=== PATIENT | male | born 1975 | race Hispanic/Latino ===

== ENCOUNTER 2023-12-21 09:21 | Outpatient (CLI) | payer OTHER | END 2023-12-21 09:22 | disposition home or self-care (01) | LOC: SCSMRI 09:21 | PROVIDERS: ATTEND Preventive Medicine Undersea and Hyperbaric Medicine | DX: L89.324 Pressure ulcer of left buttock, stage 4 (principal); M86.8X8 Other osteomyelitis, other site | CPT/HCPCS: 72197 ==

== ENCOUNTER 2023-12-24 17:56 | Inpatient (IN) | payer OTHER ==
[2023-12-24 19:10] VITALS: BMI 34.6
[2023-12-24] MEDS ORDERED: Ondansetron PF 4 MG/2 ML Vial IVP PRN (20:18)
[2023-12-24] MEDS ORDERED: Ondansetron ODT 4 MG TAB PO PRN (20:18)
[2023-12-24] MEDS: Ketorolac Tromethamine 30 MG (1 mL) VIAL IVP PRN (22:39)
[2023-12-25] MEDS: Cefepime 1 GM in Sodium Chloride 0.9% 100 ML IVPB SCH (00:33)
[2023-12-25] MEDS: metroNIDAZOLE 500 MG in Premix 1 BAG IVPB SCH (00:34)
[2023-12-25] MEDS: Vancomycin (BATCH) 1.25 GM in Premix 1 BAG IVPB SCH ×2 (05:34→18:44)
[2023-12-25 06:03] LABS: #Basophils 0.05 10x3/uL (0.0-0.2); %Basophils 0.6 % (0.0-1.0); %Eosinophils 2.8 % (0.0-10.0); %Lymphocytes 18.5 % (21.0-51.0); %Monocytes 8.9 % (0.0-10.0); %Neutrophils 68.8 % (42.0-75.0); Hematocrit 35.4 % (42.0-52.0); Hemoglobin 11.3 g/dL (14.0-18.0); Mean Corpuscular HGB CONC 31.9 g/dL (32.0-36.0); Mean Corpuscular Hemoglobin 28.3 pg (27.0-31.0); Mean Corpuscular Volume 88.5 fL (78.0-98.0); Mean Platelet Volume 8.9 fL (7.4-10.4); Platelet Count 272 10x3/uL (130-400); RBC Distribution Width 15.4 % (11.5-14.5)
[2023-12-25 06:28] LABS: Anion Gap 8 mmol/L (10-20); BUN (Urea Nitrogen) 17 mg/dL (8.9-20.6); Calc. Creatinine Clearance 119 mL/min (70-130); Calcium 8.7 mg/dL (7.8-10.44); Carbon Dioxide 24 mmol/L (22-29); Chloride 106 mmol/L (98-107); Estimated GFR 84; Glucose 101 mg/dL (70-105); Potassium 3.9 mmol/L (3.5-5.1); Sodium 134 mmol/L (136-145)
[2023-12-25 08:42] VITALS: BMI 34.6
[2023-12-26] MEDS: Cefepime 2 GM in Sodium Chloride 0.9% 100 ML IVPB SCH (00:26)
[2023-12-26 04:56] LABS: #Basophils 0.03 10x3/uL (0.0-0.2); %Basophils 0.5 % (0.0-1.0); %Eosinophils 4.6 % (0.0-10.0); %Lymphocytes 21.5 % (21.0-51.0); %Monocytes 11.5 % (0.0-10.0); %Neutrophils 61.7 % (42.0-75.0); Hematocrit 33.8 % (42.0-52.0); Hemoglobin 10.6 g/dL (14.0-18.0); Mean Corpuscular HGB CONC 31.4 g/dL (32.0-36.0); Mean Corpuscular Hemoglobin 28.1 pg (27.0-31.0); Mean Corpuscular Volume 89.7 fL (78.0-98.0); Mean Platelet Volume 9.4 fL (7.4-10.4); Platelet Count 287 10x3/uL (130-400); RBC Distribution Width 15.3 % (11.5-14.5); Red Blood Cell (RBC) Count 3.77 mill/uL (4.70-6.10)
[2023-12-26 05:33] LABS: Vancomycin, Random 16.7 ug/mL (See Comment)
[2023-12-26 05:38] LABS: Anion Gap 9 mmol/L (10-20); BUN (Urea Nitrogen) 13 mg/dL (8.9-20.6); Calc. Creatinine Clearance 130 mL/min (70-130); Calcium 8.6 mg/dL (7.8-10.44); Carbon Dioxide 25 mmol/L (22-29); Chloride 108 mmol/L (98-107); Estimated GFR 93; Glucose 106 mg/dL (70-105); Sodium 138 mmol/L (136-145)
[2023-12-26] MEDS: Vancomycin (BATCH) 1.25 GM in Premix 1 BAG IVPB SCH (09:56)
[2023-12-26] MEDS: Morphine 2 MG/ML VIAL SLOW IVP PRN (13:16)
[2023-12-26] MEDS: Vancomycin (BATCH) 1.75 GM in Premix 1 BAG IVPB SCH (20:43)
[2023-12-27 07:14] LABS: #Basophils 0.06 10x3/uL (0.0-0.2); %Eosinophils 5.9 % (0.0-10.0); %Lymphocytes 21.1 % (21.0-51.0); %Monocytes 8.7 % (0.0-10.0); %Neutrophils 63.1 % (42.0-75.0); Hematocrit 36.2 % (42.0-52.0); Hemoglobin 11.3 g/dL (14.0-18.0); Mean Corpuscular HGB CONC 31.2 g/dL (32.0-36.0); Mean Corpuscular Hemoglobin 27.4 pg (27.0-31.0); Mean Corpuscular Volume 87.7 fL (78.0-98.0); Mean Platelet Volume 9.2 fL (7.4-10.4); Platelet Count 320 10x3/uL (130-400); RBC Distribution Width 15.1 % (11.5-14.5); Red Blood Cell (RBC) Count 4.13 mill/uL (4.70-6.10)
[2023-12-27 07:33] LABS: Anion Gap 10 mmol/L (10-20); BUN (Urea Nitrogen) 11 mg/dL (8.9-20.6); Calc. Creatinine Clearance 141 mL/min (70-130); Calcium 8.5 mg/dL (7.8-10.44); Carbon Dioxide 22 mmol/L (22-29); Chloride 110 mmol/L (98-107); Estimated GFR 103; Glucose 102 mg/dL (70-105); Sodium 138 mmol/L (136-145); Vancomycin, Random 25.3 ug/mL (See Comment)
[2023-12-27] MEDS: Senokot S 8.6-50 MG TAB PO SCH ×2 (10:31→20:34)
[2023-12-27] MEDS ORDERED: Lidocaine 1% PF 5 ML VIAL ONE (14:16)
[2023-12-27] MEDS ORDERED: Sodium Bicarbonate 2.5 MEQ/5 ML SDV ONE (14:16)
[2023-12-27] MEDS: Acetaminophen 325 MG TAB PO PRN (20:34)
[2023-12-27] MEDS ORDERED: Vancomycin (BATCH) 1.25 GM in Premix 1 BAG IVPB SCH (22:00)
[2023-12-27] MEDS: Vancomycin (BATCH) 1.25 GM in Premix 1 BAG IVPB SCH (22:59)
[2023-12-28 06:05] LABS: #Basophils 0.05 10x3/uL (0.0-0.2); %Basophils 0.8 % (0.0-1.0); %Eosinophils 4.6 % (0.0-10.0); %Lymphocytes 25.9 % (21.0-51.0); %Monocytes 9.6 % (0.0-10.0); %Neutrophils 58.8 % (42.0-75.0); Hemoglobin 10.7 g/dL (14.0-18.0); Mean Corpuscular HGB CONC 31.5 g/dL (32.0-36.0); Mean Corpuscular Hemoglobin 28.2 pg (27.0-31.0); Mean Corpuscular Volume 89.5 fL (78.0-98.0); Mean Platelet Volume 9.1 fL (7.4-10.4); Platelet Count 303 10x3/uL (130-400); RBC Distribution Width 15.1 % (11.5-14.5)
[2023-12-28 06:35] LABS: Anion Gap 11 mmol/L (10-20); BUN (Urea Nitrogen) 10 mg/dL (8.9-20.6); Calc. Creatinine Clearance 122 mL/min (70-130); Calcium 8.6 mg/dL (7.8-10.44); Carbon Dioxide 25 mmol/L (22-29); Chloride 109 mmol/L (98-107); Estimated GFR 87; Glucose 96 mg/dL (70-105); Potassium 4.2 mmol/L (3.5-5.1); Sodium 141 mmol/L (136-145)
[2023-12-28 06:47] LABS: Vancomycin, Random 29.5 ug/mL (See Comment)
[2023-12-28] MEDS: Polyethylene Glycol 3350 17 GM Packet PO SCH (08:07)
[2023-12-28] MEDS: Vancomycin HCl 750 MG in Sodium Chloride 0.9% 100 ML IVPB SCH (11:16)
[2023-12-29 06:12] LABS: #Basophils 0.04 10x3/uL (0.0-0.2); %Basophils 0.6 % (0.0-1.0); %Eosinophils 3.5 % (0.0-10.0); %Lymphocytes 22.1 % (21.0-51.0); %Monocytes 8.7 % (0.0-10.0); %Neutrophils 64.9 % (42.0-75.0); Hematocrit 35.6 % (42.0-52.0); Hemoglobin 11.2 g/dL (14.0-18.0); Mean Corpuscular HGB CONC 31.5 g/dL (32.0-36.0); Mean Corpuscular Hemoglobin 27.2 pg (27.0-31.0); Mean Corpuscular Volume 86.4 fL (78.0-98.0); Platelet Count 298 10x3/uL (130-400); RBC Distribution Width 14.8 % (11.5-14.5); Red Blood Cell (RBC) Count 4.12 mill/uL (4.70-6.10)
[2023-12-29 06:20] LABS: Vancomycin, Random 27.7 ug/mL (See Comment)
[2023-12-29 06:25] LABS: Anion Gap 10 mmol/L (10-20); BUN (Urea Nitrogen) 11 mg/dL (8.9-20.6); Calc. Creatinine Clearance 130 mL/min (70-130); Calcium 8.7 mg/dL (7.8-10.44); Carbon Dioxide 24 mmol/L (22-29); Chloride 110 mmol/L (98-107); Estimated GFR 93; Glucose 97 mg/dL (70-105); Sodium 140 mmol/L (136-145)
[2023-12-30] MEDS: DAPTOmycin 800 MG in Sodium Chloride 0.9% 50 ML IVPB SCH (09:38)
[2023-12-30 17:57] VITALS: BP 154/98; TEMP 98
== END 2023-12-30 17:57 | disposition home or self-care (01) | DRG 539 ==
LOC: T4-A 18:50 → OBSVTOIN 20:18
PROVIDERS: ADMIT Internal Medicine; ATTEND Family Medicine
PROC: 02HV33Z Insertion of Infusion Device into Superior Vena Cava, Percutaneous Approach (ICD-10-PCS; principal; 2023-12-27)
PROC: 4A02X4A Measurement of Cardiac Electrical Activity, Guidance, External Approach (ICD-10-PCS; 2023-12-27)
DX: M46.28 Osteomyelitis of vertebra, sacral and sacrococcygeal region (principal); L89.154 Pressure ulcer of sacral region, stage 4; G82.20 Paraplegia, unspecified; Z79.899 Other long term (current) drug therapy; N31.9 Neuromuscular dysfunction of bladder, unspecified; Z90.49 Acquired absence of other specified parts of digestive tract; Z98.890 Other specified postprocedural states
CPT/HCPCS: 36415; 36569; 76000; 76937; 77001; 80048; 80053; 80202; 83605; 85025; 86140; 86141; 87040; 87081; 96374; 97139; J0692; J0878; J1885; J2272; J2543; J3370; J3490; J7030

== ENCOUNTER 2024-06-02 07:23 | Inpatient (IN) | payer OTHER ==
[2024-06-02 08:33] LABS: Bilirubin Negative (Negative); Blood, Urine 3+ (Negative); CAUTI Indications for Culture Dysuria,urgency,freq; Clarity Turbid (Clear); Glucose, Urine (Dipstick) Normal (Negative); Ketone, Urine Negative (Negative); Leukocyte 75 Leu/uL (Negative); Nitrite 1+ (Negative); Protein, Urine (Dipstick) 50 mg/dL (Neg-Trace); RBC/HPF 21-50 HPF (0-3); Specific Gravity, Urine 1.012 (1.002-1.036); Squamous Epithelial None Seen HPF (0-3); Urobilinogen Normal mg/dL (Less than 2); pH, Urine 5.5 (5.0-9.0)
[2024-06-02 08:35] LABS: #Basophils 0.05 10x3/uL (0.0-0.2); %Basophils 0.3 % (0.0-1.0); %Eosinophils 0.6 % (0.0-10.0); %Lymphocytes 7.5 % (21.0-51.0); %Monocytes 5.8 % (0.0-10.0); %Neutrophils 85.1 % (42.0-75.0); Hematocrit 33.1 % (42.0-52.0); Hemoglobin 10.8 g/dL (14.0-18.0); Mean Corpuscular HGB CONC 32.6 g/dL (32.0-36.0); Mean Corpuscular Hemoglobin 27.1 pg (27.0-31.0); Platelet Count 563 10x3/uL (130-400); RBC Distribution Width 15.7 % (11.5-14.5); Red Blood Cell (RBC) Count 3.99 mill/uL (4.70-6.10)
[2024-06-02 08:35] LABS: Bacteria/HPF 1+ HPF (None Seen)
[2024-06-02 08:36] LABS: Urine Culture Reflex Yes Yes
[2024-06-02] MEDS ORDERED: Sodium Chloride 0.9% 100 ML ONE ×2 (08:44→10:26)
[2024-06-02] MEDS ORDERED: cefTRIAXone (ROCEPHIN) 2 GM VIAL ONE (08:44)
[2024-06-02 08:53] LABS: ALT (SGPT) 38 U/L (8-55); AST (SGOT) 45 U/L (5-34); Albumin 2.3 g/dL (3.5-5.0); Alkaline Phosphatase 135 U/L (40-110); Anion Gap 15 mmol/L (10-20); BUN (Urea Nitrogen) 47 mg/dL (8.9-20.6); Bilirubin, Total 0.8 mg/dL (0.2-1.2); Calc. Creatinine Clearance 0 mL/min (70-130); Calcium 8.5 mg/dL (7.8-10.44); Carbon Dioxide 19 mmol/L (22-29); Chloride 108 mmol/L (98-107); Estimated GFR 32; Globulin 5.7 g/dL (2.4-3.5); Glucose 110 mg/dL (70-105); Sodium 138 mmol/L (136-145)
[2024-06-02] MEDS ORDERED: Vancomycin 1 GM/200 ML (FROZEN) BAG ONE (10:26)
[2024-06-02] MEDS ORDERED: Piperacillin/Tazobactam 3.375 GM VIAL ONE (10:26)
[2024-06-02] MEDS ORDERED: Iopamidol-370 76% 500 ML MDV (1 ML CHARGE) ONE (10:45)
[2024-06-02] MEDS ORDERED: Acetaminophen 650 MG Suppository PR PRN (11:09)
[2024-06-02] MEDS ORDERED: Ondansetron ODT 4 MG TAB PO PRN (11:09)
[2024-06-02] MEDS ORDERED: Senokot S 8.6-50 MG TAB PO PRN (11:09)
[2024-06-02] MEDS ORDERED: Ondansetron PF 4 MG/2 ML Vial IVP PRN (11:09)
[2024-06-02] MEDS ORDERED: Guaifenesin DM 100-10/5 ML UDCUP PO PRN (11:09)
[2024-06-02] MEDS ORDERED: Bisacodyl 5 MG TAB PO PRN (11:09)
[2024-06-02] MEDS ORDERED: PROPOFOL 20 ML ONE (11:48)
[2024-06-02] MEDS ORDERED: Lidocaine 1% PF 5 ML VIAL ONE (11:48)
[2024-06-02] MEDS ORDERED: Ondansetron PF 4 MG/2 ML Vial ONE (11:48)
[2024-06-02] MEDS ORDERED: fentaNYL PF 100 MCG/2 ML SYRINGE ONE (11:48)
[2024-06-02] MEDS ORDERED: Midazolam HCl 2 mg/2 ml Vial ONE (11:48)
[2024-06-02] MEDS ORDERED: Dexamethasone 20 MG/5 ML VIAL ONE (11:48)
[2024-06-02] MEDS ORDERED: PHENYLEPHRINE-NS 100 MCG/ML 10 ML SYRINGE ONE ×2 (13:22→13:32)
[2024-06-02] MEDS ORDERED: ePHEDrine Sulfate 50 MG/10 ML VIAL ONE (13:30)
[2024-06-02] MEDS ORDERED: SUGAMMADEX SODIUM 200 MG/2 ML VIAL ONE (13:54)
[2024-06-02] MEDS: Sodium Chloride 0.9% 1,000 ML IV SCH (15:29)
[2024-06-02] MEDS: Clindamycin/D5W 900 MG in Premix 1 BAG IVPB SCH ×2 (16:29→22:05)
[2024-06-02] MEDS: Piperacillin/Tazobactam 3.375 GM in Sodium Chloride 0.9% 100 ML IVPB SCH (16:52)
[2024-06-03 04:22] LABS: #Basophils Less than 0.03 10x3/uL (0.0-0.2); #Eosinophils Less than 0.03 10x3/uL (0.0-0.7); %Basophils 0.1 % (0.0-1.0); %Lymphocytes 5.2 % (21.0-51.0); %Monocytes 4.5 % (0.0-10.0); %Neutrophils 89.6 % (42.0-75.0); Hematocrit 28.6 % (42.0-52.0); Hemoglobin 8.9 g/dL (14.0-18.0); Mean Corpuscular HGB CONC 31.1 g/dL (32.0-36.0); Mean Corpuscular Hemoglobin 26.8 pg (27.0-31.0); Mean Corpuscular Volume 86.1 fL (78.0-98.0); Mean Platelet Volume 9.1 fL (7.4-10.4); Platelet Count 453 10x3/uL (130-400); RBC Distribution Width 16.2 % (11.5-14.5); Red Blood Cell (RBC) Count 3.32 mill/uL (4.70-6.10)
[2024-06-03 04:51] LABS: Vancomycin, Random 6.7 ug/mL (See Comment)
[2024-06-03 04:53] LABS: ALT (SGPT) 31 U/L (8-55); AST (SGOT) 43 U/L (5-34); Albumin 1.8 g/dL (3.5-5.0); Alkaline Phosphatase 99 U/L (40-110); Anion Gap 15 mmol/L (10-20); BUN (Urea Nitrogen) 35 mg/dL (8.9-20.6); Bilirubin, Total 0.3 mg/dL (0.2-1.2); Calc. Creatinine Clearance 69 mL/min (70-130); Calcium 7.3 mg/dL (7.8-10.44); Carbon Dioxide 20 mmol/L (22-29); Chloride 109 mmol/L (98-107); Estimated GFR 41; Globulin 4.8 g/dL (2.4-3.5); Glucose 194 mg/dL (70-105); Potassium 4.1 mmol/L (3.5-5.1); Protein, Total 6.6 g/dL (6.0-8.3); Sodium 140 mmol/L (136-145)
[2024-06-03] MEDS: Vancomycin (BATCH) 1.5 GM in Premix 1 BAG IVPB SCH (08:00)
[2024-06-03] MEDS: Enoxaparin 30 MG (0.3 mL) SYRINGE SC SCH (09:33)
[2024-06-03] MEDS ORDERED: Vancomycin (BATCH) 1.25 GM in Premix 1 BAG IVPB SCH (11:00)
[2024-06-04 04:37] LABS: #Basophils Less than 0.03 10x3/uL (0.0-0.2); %Basophils 0.1 % (0.0-1.0); %Eosinophils 0.3 % (0.0-10.0); %Lymphocytes 11.1 % (21.0-51.0); %Monocytes 4.5 % (0.0-10.0); Hematocrit 27.5 % (42.0-52.0); Hemoglobin 8.6 g/dL (14.0-18.0); Mean Corpuscular HGB CONC 31.3 g/dL (32.0-36.0); Mean Corpuscular Volume 86.2 fL (78.0-98.0); Mean Platelet Volume 9.1 fL (7.4-10.4); Platelet Count 535 10x3/uL (130-400); RBC Distribution Width 16.2 % (11.5-14.5); Red Blood Cell (RBC) Count 3.19 mill/uL (4.70-6.10)
[2024-06-04] MEDS ORDERED: KETAMINE 100 MG/ML (5ML VIAL) ONE (07:49)
[2024-06-04] MEDS ORDERED: VANCOMYCIN 1.25 GM/250 ML BAG 1.25 GM in Premix 1 BAG IVPB SCH (08:00)
[2024-06-04] MEDS ORDERED: Midazolam HCl 2 mg/2 ml Vial ONE (08:09)
[2024-06-04] MEDS ORDERED: fentaNYL PF 100 MCG/2 ML SYRINGE ONE (08:09)
[2024-06-04] MEDS ORDERED: Lidocaine 2% 6 ML (Jelly) SYR ONE (08:10)
[2024-06-04] MEDS ORDERED: Lidocaine 2% PF 5 ML VIAL ONE (08:10)
[2024-06-04] MEDS ORDERED: Ondansetron PF 4 MG/2 ML Vial ONE (08:10)
[2024-06-04] MEDS ORDERED: Rocuronium Bromide 10 MG/ML (10ML VIAL) ONE (08:10)
[2024-06-04] MEDS ORDERED: Dexamethasone 4 mg/ml Vial ONE (08:10)
[2024-06-04] MEDS ORDERED: SUGAMMADEX SODIUM 200 MG/2 ML VIAL ONE (08:11)
[2024-06-04] MEDS ORDERED: PROPOFOL 20 ML ONE (08:12)
[2024-06-04] MEDS ORDERED: Glycopyrrolate 0.2 MG/ML 5 ML SYRINGE ONE (08:22)
[2024-06-04] MEDS ORDERED: Ondansetron HCl/PF 4 MG/2 ML Vial IVP PRN (08:48)
[2024-06-04] MEDS ORDERED: Promethazine HCl 25 MG/ML VIAL IM PRN (08:48)
[2024-06-04] MEDS ORDERED: HYDROmorphone 2 MG/ML VIAL SLOW IVP PRN (08:48)
[2024-06-04] MEDS: Enoxaparin 40 MG (0.4 mL) SYRINGE SC SCH (10:14)
[2024-06-04] MEDS: Acetaminophen/Codeine 30-300mg Tablet PO PRN (20:30)
[2024-06-04] MEDS: Calcium Carbonate 500 MG ChewTAB PO PRN (23:29)
[2024-06-05 05:17] LABS: #Basophils 0.03 10x3/uL (0.0-0.2); %Basophils 0.2 % (0.0-1.0); %Eosinophils 0.6 % (0.0-10.0); %Lymphocytes 16.9 % (21.0-51.0); %Monocytes 4.3 % (0.0-10.0); %Neutrophils 76.6 % (42.0-75.0); Hematocrit 29.1 % (42.0-52.0); Hemoglobin 9.1 g/dL (14.0-18.0); Mean Corpuscular HGB CONC 31.3 g/dL (32.0-36.0); Mean Corpuscular Hemoglobin 26.9 pg (27.0-31.0); Mean Corpuscular Volume 86.1 fL (78.0-98.0); Mean Platelet Volume 8.9 fL (7.4-10.4); Platelet Count 563 10x3/uL (130-400); RBC Distribution Width 16.4 % (11.5-14.5); Red Blood Cell (RBC) Count 3.38 mill/uL (4.70-6.10)
[2024-06-05 05:39] LABS: Anion Gap 11 mmol/L (10-20); BUN (Urea Nitrogen) 21 mg/dL (8.9-20.6); Calc. Creatinine Clearance 108 mL/min (70-130); Calcium 7.5 mg/dL (7.8-10.44); Carbon Dioxide 19 mmol/L (22-29); Chloride 114 mmol/L (98-107); Estimated GFR 69; Glucose 91 mg/dL (70-105); Sodium 140 mmol/L (136-145)
[2024-06-05] MEDS ORDERED: Sodium Bicarbonate 2.5 MEQ/5 ML SDV ONE (12:28)
[2024-06-05] MEDS ORDERED: Lidocaine 1% PF 5 ML VIAL ONE (12:28)
[2024-06-06 05:59] LABS: #Basophils 0.05 10x3/uL (0.0-0.2); %Basophils 0.3 % (0.0-1.0); %Eosinophils 1.5 % (0.0-10.0); %Monocytes 4.7 % (0.0-10.0); Hematocrit 26.6 % (42.0-52.0); Hemoglobin 8.3 g/dL (14.0-18.0); Mean Corpuscular HGB CONC 31.2 g/dL (32.0-36.0); Mean Corpuscular Volume 86.6 fL (78.0-98.0); Mean Platelet Volume 8.6 fL (7.4-10.4); Platelet Count 494 10x3/uL (130-400); RBC Distribution Width 16.2 % (11.5-14.5); Red Blood Cell (RBC) Count 3.07 mill/uL (4.70-6.10)
[2024-06-06 06:26] LABS: ALT (SGPT) 29 U/L (8-55); AST (SGOT) 26 U/L (5-34); Albumin 1.4 g/dL (3.5-5.0); Alkaline Phosphatase 62 U/L (40-110); Anion Gap 7 mmol/L (10-20); BUN (Urea Nitrogen) 11 mg/dL (8.9-20.6); Bilirubin, Total 0.3 mg/dL (0.2-1.2); Calc. Creatinine Clearance 177 mL/min (70-130); Carbon Dioxide 18 mmol/L (22-29); Chloride 120 mmol/L (98-107); Estimated GFR 110; Globulin 3.2 g/dL (2.4-3.5); Glucose 93 mg/dL (70-105); Magnesium 1.3 mg/dL (1.6-2.6); Protein, Total 4.6 g/dL (6.0-8.3); Sodium 142 mmol/L (136-145)
[2024-06-06] MEDS: Potassium Chloride 20 MEQ TAB PO SCH (08:45)
[2024-06-06] MEDS: Magnesium 2 GM/50 ML(in water) 2 GM in Premix 1 BAG IVPB SCH (08:45)
[2024-06-06] MEDS: Potassium Chloride 40 MEQ in Premix 1 BAG IVPB SCH (09:47)
[2024-06-06] MEDS: CALCIUM GLUC 1 GM/NS 50 ML 1 GM in Premix 1 BAG IVPB SCH (10:04)
[2024-06-07 05:47] LABS: #Basophils 0.04 10x3/uL (0.0-0.2); %Basophils 0.3 % (0.0-1.0); %Eosinophils 2.2 % (0.0-10.0); %Lymphocytes 19.4 % (21.0-51.0); %Neutrophils 71.6 % (42.0-75.0); Hematocrit 20.7 % (42.0-52.0); Hemoglobin 6.3 g/dL (14.0-18.0); Mean Corpuscular HGB CONC 30.4 g/dL (32.0-36.0); Mean Corpuscular Hemoglobin 26.6 pg (27.0-31.0); Mean Corpuscular Volume 87.3 fL (78.0-98.0); Mean Platelet Volume 8.6 fL (7.4-10.4); Platelet Count 412 10x3/uL (130-400); RBC Distribution Width 16.2 % (11.5-14.5); Red Blood Cell (RBC) Count 2.37 mill/uL (4.70-6.10)
[2024-06-07 06:04] LABS: ALT (SGPT) 41 U/L (8-55); AST (SGOT) 34 U/L (5-34); Albumin 1.8 g/dL (3.5-5.0); Alkaline Phosphatase 71 U/L (40-110); Anion Gap 10 mmol/L (10-20); BUN (Urea Nitrogen) 10 mg/dL (8.9-20.6); Bilirubin, Total 0.3 mg/dL (0.2-1.2); Calc. Creatinine Clearance 122 mL/min (70-130); Calcium 7.7 mg/dL (7.8-10.44); Carbon Dioxide 21 mmol/L (22-29); Chloride 112 mmol/L (98-107); Estimated GFR 80; Globulin 4.3 g/dL (2.4-3.5); Glucose 110 mg/dL (70-105); Magnesium 1.9 mg/dL (1.6-2.6); Potassium 3.7 mmol/L (3.5-5.1); Protein, Total 6.1 g/dL (6.0-8.3); Sodium 139 mmol/L (136-145)
[2024-06-08 05:16] LABS: #Basophils 0.06 10x3/uL (0.0-0.2); %Basophils 0.4 % (0.0-1.0); %Eosinophils 2.6 % (0.0-10.0); %Lymphocytes 16.9 % (21.0-51.0); %Monocytes 5.3 % (0.0-10.0); %Neutrophils 73.2 % (42.0-75.0); Hematocrit 30.4 % (42.0-52.0); Hemoglobin 9.8 g/dL (14.0-18.0); Mean Corpuscular HGB CONC 32.2 g/dL (32.0-36.0); Mean Corpuscular Hemoglobin 27.8 pg (27.0-31.0); Mean Corpuscular Volume 86.1 fL (78.0-98.0); Mean Platelet Volume 8.6 fL (7.4-10.4); Platelet Count 451 10x3/uL (130-400); RBC Distribution Width 16.2 % (11.5-14.5); Red Blood Cell (RBC) Count 3.53 mill/uL (4.70-6.10)
[2024-06-08 05:28] LABS: ALT (SGPT) 47 U/L (8-55); AST (SGOT) 45 U/L (5-34); Alkaline Phosphatase 105 U/L (40-110); Anion Gap 13 mmol/L (10-20); BUN (Urea Nitrogen) 10 mg/dL (8.9-20.6); Bilirubin, Total 0.3 mg/dL (0.2-1.2); Calc. Creatinine Clearance 110 mL/min (70-130); Calcium 8.1 mg/dL (7.8-10.44); Carbon Dioxide 22 mmol/L (22-29); Chloride 109 mmol/L (98-107); Estimated GFR 71; Globulin 4.7 g/dL (2.4-3.5); Glucose 113 mg/dL (70-105); Magnesium 1.7 mg/dL (1.6-2.6); Potassium 4.1 mmol/L (3.5-5.1); Protein, Total 6.7 g/dL (6.0-8.3); Sodium 140 mmol/L (136-145)
[2024-06-08] MEDS: Loperamide HCl 2 MG CAP PO PRN (20:19)
[2024-06-09 06:45] LABS: #Basophils 0.04 10x3/uL (0.0-0.2); %Basophils 0.3 % (0.0-1.0); %Eosinophils 2.1 % (0.0-10.0); %Lymphocytes 12.6 % (21.0-51.0); %Monocytes 5.7 % (0.0-10.0); %Neutrophils 78.2 % (42.0-75.0); Hematocrit 30.9 % (42.0-52.0); Hemoglobin 9.7 g/dL (14.0-18.0); Mean Corpuscular HGB CONC 31.4 g/dL (32.0-36.0); Mean Corpuscular Hemoglobin 26.6 pg (27.0-31.0); Mean Corpuscular Volume 84.9 fL (78.0-98.0); Mean Platelet Volume 8.8 fL (7.4-10.4); Platelet Count 427 10x3/uL (130-400); RBC Distribution Width 15.9 % (11.5-14.5); Red Blood Cell (RBC) Count 3.64 mill/uL (4.70-6.10)
[2024-06-09 07:06] LABS: ALT (SGPT) 36 U/L (8-55); AST (SGOT) 29 U/L (5-34); Alkaline Phosphatase 94 U/L (40-110); Anion Gap 10 mmol/L (10-20); BUN (Urea Nitrogen) 10 mg/dL (8.9-20.6); Bilirubin, Total 0.3 mg/dL (0.2-1.2); Calc. Creatinine Clearance 119 mL/min (70-130); Carbon Dioxide 22 mmol/L (22-29); Chloride 108 mmol/L (98-107); Estimated GFR 76; Globulin 4.7 g/dL (2.4-3.5); Glucose 94 mg/dL (70-105); Magnesium 1.6 mg/dL (1.6-2.6); Potassium 4.1 mmol/L (3.5-5.1); Protein, Total 6.7 g/dL (6.0-8.3); Sodium 136 mmol/L (136-145)
[2024-06-09] MEDS: Acetaminophen 325 MG TAB PO PRN (08:55)
[2024-06-10] MEDS: Pepto Bismol Chew TAB PO SCH (05:29)
[2024-06-10 05:50] VITALS: BMI 37.9
[2024-06-10 07:22] LABS: #Basophils 0.06 10x3/uL (0.0-0.2); %Basophils 0.4 % (0.0-1.0); %Lymphocytes 12.2 % (21.0-51.0); %Neutrophils 78.6 % (42.0-75.0); Hematocrit 29.7 % (42.0-52.0); Hemoglobin 9.4 g/dL (14.0-18.0); Mean Corpuscular HGB CONC 31.6 g/dL (32.0-36.0); Mean Corpuscular Hemoglobin 27.2 pg (27.0-31.0); Mean Corpuscular Volume 86.1 fL (78.0-98.0); Mean Platelet Volume 8.5 fL (7.4-10.4); Platelet Count 403 10x3/uL (130-400); RBC Distribution Width 16.1 % (11.5-14.5); Red Blood Cell (RBC) Count 3.45 mill/uL (4.70-6.10)
[2024-06-10] MEDS: Saccharomyces boulardii 250 MG CAP PO SCH (20:13)
[2024-06-11 04:43] LABS: #Basophils 0.06 10x3/uL (0.0-0.2); %Basophils 0.5 % (0.0-1.0); %Eosinophils 2.6 % (0.0-10.0); %Monocytes 6.3 % (0.0-10.0); Hematocrit 30.2 % (42.0-52.0); Hemoglobin 9.6 g/dL (14.0-18.0); Mean Corpuscular HGB CONC 31.8 g/dL (32.0-36.0); Mean Corpuscular Hemoglobin 27.6 pg (27.0-31.0); Mean Corpuscular Volume 86.8 fL (78.0-98.0); Mean Platelet Volume 8.6 fL (7.4-10.4); Platelet Count 362 10x3/uL (130-400); RBC Distribution Width 16.1 % (11.5-14.5); Red Blood Cell (RBC) Count 3.48 mill/uL (4.70-6.10)
[2024-06-11 05:11] LABS: ALT (SGPT) 31 U/L (8-55); AST (SGOT) 36 U/L (5-34); Albumin 2.1 g/dL (3.5-5.0); Alkaline Phosphatase 114 U/L (40-110); Anion Gap 12 mmol/L (10-20); BUN (Urea Nitrogen) 11 mg/dL (8.9-20.6); Bilirubin, Total 0.3 mg/dL (0.2-1.2); Calc. Creatinine Clearance 118 mL/min (70-130); Calcium 8.2 mg/dL (7.8-10.44); Carbon Dioxide 20 mmol/L (22-29); Chloride 111 mmol/L (98-107); Estimated GFR 75; Glucose 93 mg/dL (70-105); Magnesium 1.8 mg/dL (1.6-2.6); Potassium 4.2 mmol/L (3.5-5.1); Protein, Total 7.1 g/dL (6.0-8.3); Sodium 139 mmol/L (136-145)
[2024-06-11] MEDS: Loperamide HCl 2 MG CAP PO SCH (08:59)
[2024-06-11] MEDS: Piperacillin/Tazobactam 3.375 GM VIAL ONE (16:07)
[2024-06-12 06:38] LABS: #Basophils 0.07 10x3/uL (0.0-0.2); %Basophils 0.5 % (0.0-1.0); %Eosinophils 2.2 % (0.0-10.0); %Lymphocytes 11.2 % (21.0-51.0); %Monocytes 5.7 % (0.0-10.0); Hematocrit 31.1 % (42.0-52.0); Hemoglobin 9.6 g/dL (14.0-18.0); Mean Corpuscular HGB CONC 30.9 g/dL (32.0-36.0); Mean Corpuscular Hemoglobin 26.8 pg (27.0-31.0); Mean Corpuscular Volume 86.9 fL (78.0-98.0); Mean Platelet Volume 8.8 fL (7.4-10.4); Platelet Count 384 10x3/uL (130-400); RBC Distribution Width 15.9 % (11.5-14.5); Red Blood Cell (RBC) Count 3.58 mill/uL (4.70-6.10)
[2024-06-12] MEDS: Enoxaparin 40 MG (0.4 mL) SYRINGE SC SCH (08:14)
[2024-06-13 06:01] LABS: #Basophils 0.06 10x3/uL (0.0-0.2); %Basophils 0.5 % (0.0-1.0); %Eosinophils 2.6 % (0.0-10.0); %Monocytes 6.5 % (0.0-10.0); %Neutrophils 77.9 % (42.0-75.0); Hematocrit 30.7 % (42.0-52.0); Hemoglobin 9.7 g/dL (14.0-18.0); Mean Corpuscular HGB CONC 31.6 g/dL (32.0-36.0); Mean Corpuscular Hemoglobin 27.2 pg (27.0-31.0); Mean Corpuscular Volume 86.2 fL (78.0-98.0); Mean Platelet Volume 9.2 fL (7.4-10.4); Platelet Count 382 10x3/uL (130-400); Red Blood Cell (RBC) Count 3.56 mill/uL (4.70-6.10)
[2024-06-13 06:29] LABS: ALT (SGPT) 22 U/L (8-55); AST (SGOT) 21 U/L (5-34); Albumin 2.3 g/dL (3.5-5.0); Alkaline Phosphatase 93 U/L (40-110); Anion Gap 12 mmol/L (10-20); BUN (Urea Nitrogen) 11 mg/dL (8.9-20.6); Bilirubin, Total 0.3 mg/dL (0.2-1.2); Calc. Creatinine Clearance 120 mL/min (70-130); Calcium 8.2 mg/dL (7.8-10.44); Carbon Dioxide 23 mmol/L (22-29); Chloride 107 mmol/L (98-107); Estimated GFR 77; Globulin 4.9 g/dL (2.4-3.5); Glucose 105 mg/dL (70-105); Potassium 3.8 mmol/L (3.5-5.1); Protein, Total 7.2 g/dL (6.0-8.3); Sodium 138 mmol/L (136-145)
[2024-06-13] MEDS: Acetaminophen/Codeine 30-300mg Tablet PO PRN (12:58)
[2024-06-14 09:05] LABS: #Basophils 0.08 10x3/uL (0.0-0.2); %Basophils 0.7 % (0.0-1.0); %Eosinophils 3.9 % (0.0-10.0); %Lymphocytes 11.9 % (21.0-51.0); %Monocytes 6.6 % (0.0-10.0); %Neutrophils 76.5 % (42.0-75.0); Hematocrit 31.8 % (42.0-52.0); Mean Corpuscular HGB CONC 31.4 g/dL (32.0-36.0); Mean Corpuscular Hemoglobin 27.2 pg (27.0-31.0); Mean Corpuscular Volume 86.6 fL (78.0-98.0); Mean Platelet Volume 8.7 fL (7.4-10.4); Platelet Count 364 10x3/uL (130-400); RBC Distribution Width 15.9 % (11.5-14.5); Red Blood Cell (RBC) Count 3.67 mill/uL (4.70-6.10)
[2024-06-14 09:30] LABS: ALT (SGPT) 19 U/L (8-55); AST (SGOT) 12 U/L (5-34); Albumin 2.4 g/dL (3.5-5.0); Alkaline Phosphatase 87 U/L (40-110); Anion Gap 13 mmol/L (10-20); BUN (Urea Nitrogen) 9 mg/dL (8.9-20.6); Bilirubin, Total 0.2 mg/dL (0.2-1.2); Calc. Creatinine Clearance 120 mL/min (70-130); Calcium 8.7 mg/dL (7.8-10.44); Carbon Dioxide 22 mmol/L (22-29); Chloride 109 mmol/L (98-107); Estimated GFR 77; Globulin 5.3 g/dL (2.4-3.5); Glucose 124 mg/dL (70-105); Protein, Total 7.7 g/dL (6.0-8.3); Sodium 140 mmol/L (136-145)
[2024-06-16 14:43] VITALS: BMI 37.0
[2024-06-16] MEDS: Loperamide HCl 2 MG CAP PO SCH (21:10)
[2024-06-17] MEDS: Loperamide HCl 2 MG CAP PO SCH (14:00)
[2024-06-18 06:54] LABS: #Basophils 0.07 10x3/uL (0.0-0.2); %Basophils 0.7 % (0.0-1.0); %Lymphocytes 16.4 % (21.0-51.0); %Monocytes 7.5 % (0.0-10.0); %Neutrophils 70.9 % (42.0-75.0); Hematocrit 27.1 % (42.0-52.0); Hemoglobin 8.5 g/dL (14.0-18.0); Mean Corpuscular HGB CONC 31.4 g/dL (32.0-36.0); Mean Corpuscular Hemoglobin 26.7 pg (27.0-31.0); Mean Corpuscular Volume 85.2 fL (78.0-98.0); Mean Platelet Volume 8.9 fL (7.4-10.4); Platelet Count 265 10x3/uL (130-400); RBC Distribution Width 15.6 % (11.5-14.5); Red Blood Cell (RBC) Count 3.18 mill/uL (4.70-6.10)
[2024-06-18 07:10] LABS: Anion Gap 8 mmol/L (10-20); BUN (Urea Nitrogen) 8 mg/dL (8.9-20.6); Calc. Creatinine Clearance 162 mL/min (70-130); Calcium 7.5 mg/dL (7.8-10.44); Carbon Dioxide 20 mmol/L (22-29); Chloride 112 mmol/L (98-107); Estimated GFR 107; Glucose 82 mg/dL (70-105); Potassium 3.4 mmol/L (3.5-5.1); Sodium 137 mmol/L (136-145)
[2024-06-18] MEDS: Diphenoxylate HCl/Atropine Tablet PO SCH (15:16)
[2024-06-20 07:42] VITALS: BP 153/92; TEMP 97.8
[2024-06-20] MEDS: Piperacillin/Tazobactam 3.375 GM VIAL ONE (08:56)
== END 2024-06-20 11:21 | DRG 853 ==
LOC: ERS 07:23 → ERHOLD 11:14 → CCU 12:16 → SURG A 12:19 → CCU 15:15 → SURG B 06-03 14:20
PROVIDERS: ADMIT Internal Medicine; ATTEND Internal Medicine
PROC: 0QB30ZZ Excision of Left Pelvic Bone, Open Approach (ICD-10-PCS; principal; 2024-06-02)
PROC: 0JBB0ZZ Excision of Perineum Subcutaneous Tissue and Fascia, Open Approach (ICD-10-PCS; 2024-06-04)
PROC: 02HV33Z Insertion of Infusion Device into Superior Vena Cava, Percutaneous Approach (ICD-10-PCS; 2024-06-05)
PROC: B518ZZA Fluoroscopy of Superior Vena Cava, Guidance (ICD-10-PCS; 2024-06-05)
PROC: B548ZZA Ultrasonography of Superior Vena Cava, Guidance (ICD-10-PCS; 2024-06-05)
DX: A41.59 Other Gram-negative sepsis (principal); L89.154 Pressure ulcer of sacral region, stage 4; M46.28 Osteomyelitis of vertebra, sacral and sacrococcygeal region; N17.9 Acute kidney failure, unspecified; E44.0 Moderate protein-calorie malnutrition; G82.20 Paraplegia, unspecified; Z68.1 Body mass index [BMI] 19.9 or less, adult; L02.215 Cutaneous abscess of perineum; N39.0 Urinary tract infection, site not specified; K52.1 Toxic gastroenteritis and colitis; B96.4 Proteus (mirabilis) (morganii) as the cause of diseases classified elsewhere; A41.01 Sepsis due to Methicillin susceptible Staphylococcus aureus; A41.81 Sepsis due to Enterococcus; E86.0 Dehydration; D64.9 Anemia, unspecified; R65.20 Severe sepsis without septic shock; E87.6 Hypokalemia; E83.52 Hypercalcemia; E83.51 Hypocalcemia; Z91.041 Radiographic dye allergy status; Z90.49 Acquired absence of other specified parts of digestive tract; T36.95XA Adverse effect of unspecified systemic antibiotic, initial encounter
CPT/HCPCS: 36415; 36430; 36573; 51702; 74177; 76870; 80048; 80053; 80202; 81001; 83605; 83735; 85025; 86850; 86900; 86901; 87040; 87070; 87076; 87077; 87086; 87186; 87205; 93005; 93976; 94760; 96365; 96375; 97139; C1751; J0613; J0696; J1100; J1650; J2250; J2405; J2543; J2704; J3370; J3475; J3490; P9016; Q9967

== ENCOUNTER 2024-06-28 14:17 | Emergency (ER) | payer OTHER ==
[2024-06-28 15:45] LABS: #Basophils 0.06 10x3/uL (0.0-0.2); %Basophils 0.6 % (0.0-1.0); %Lymphocytes 18.6 % (21.0-51.0); %Monocytes 6.7 % (0.0-10.0); %Neutrophils 69.7 % (42.0-75.0); Hemoglobin 10.9 g/dL (14.0-18.0); Mean Corpuscular HGB CONC 32.1 g/dL (32.0-36.0); Mean Corpuscular Hemoglobin 27.2 pg (27.0-31.0); Mean Corpuscular Volume 84.8 fL (78.0-98.0); Mean Platelet Volume 8.8 fL (7.4-10.4); Platelet Count 448 10x3/uL (130-400); RBC Distribution Width 15.7 % (11.5-14.5); Red Blood Cell (RBC) Count 4.01 mill/uL (4.70-6.10)
[2024-06-28 16:00] LABS: ALT (SGPT) 12 U/L (8-55); AST (SGOT) 15 U/L (5-34); Albumin 2.8 g/dL (3.5-5.0); Alkaline Phosphatase 90 U/L (40-110); Anion Gap 13 mmol/L (10-20); BUN (Urea Nitrogen) 10 mg/dL (8.9-20.6); Bilirubin, Total 0.2 mg/dL (0.2-1.2); Calc. Creatinine Clearance 0 mL/min (70-130); Carbon Dioxide 21 mmol/L (22-29); Chloride 108 mmol/L (98-107); Estimated GFR 73; Globulin 5.4 g/dL (2.4-3.5); Glucose 108 mg/dL (70-105); Potassium 3.7 mmol/L (3.5-5.1); Protein, Total 8.2 g/dL (6.0-8.3); Sodium 138 mmol/L (136-145)
== END 2024-06-28 17:00 | disposition home or self-care (01) ==
LOC: ERS 14:17
DX: L02.214 Cutaneous abscess of groin (principal)
CPT/HCPCS: 36415; 80053; 83605; 85025; 87040; 99283